=== PATIENT | female | born 2000 | race Caucasian/White ===

== ENCOUNTER 2020-09-21 16:10 | Inpatient (IN) | payer OTHER ==
[~2020-09-21] VITALS: Ht 170.2 cm; Wt 99.8 kg
[2020-09-21 17:07] LABS: HEMOGLOBIN 11.2 gm/dl (12.3-15.3); RED BLOOD COUNT 3.92 M/UL (4.00-5.10); WHITE BLOOD COUNT 10.8 K/UL (4.5-11.0)
[2020-09-22] MEDS ORDERED: IBUPROFEN600 MG PO (14:54)
[2020-09-22] MEDS ORDERED: DOCUSATE SODIU100 MG PO (14:54)
[2020-09-23 06:03] LABS: HEMOGLOBIN 11.1 gm/dl (12.3-15.3)
== END 2020-09-23 15:01 | disposition home or self-care (01) | DRG 807 ==
LOC: GENOP 16:10 → OB 17:00
PROVIDERS: Obstetrics & Gynecology; ADMIT Obstetrics & Gynecology
PROC: 10E0XZZ Delivery of Products of Conception, External Approach (ICD-10-PCS; principal; 2020-09-21)
PROC: 0U7C7ZZ Dilation of Cervix, Via Natural or Artificial Opening (ICD-10-PCS; 2020-09-21)
PROC: 10H07YZ Insertion of Other Device into Products of Conception, Via Natural or Artificial Opening (ICD-10-PCS; 2020-09-21)
PROC: 4A1HXCZ Monitoring of Products of Conception, Cardiac Rate, External Approach (ICD-10-PCS; 2020-09-21)
PROC: 4A1HXFZ Monitoring of Products of Conception, Cardiac Rhythm, External Approach (ICD-10-PCS; 2020-09-21)
DX: O70.0 First degree perineal laceration during delivery (principal); Z37.0 Single live birth; Z3A.39 39 weeks gestation of pregnancy; Z86.16 Personal history of COVID-19
CPT/HCPCS: 36415; 51702; 81001; 82800; 85014; 85018; 85025; J7120; U0003